=== PATIENT | female | born 1970 | race Caucasian/White ===

== ENCOUNTER 2020-10-09 11:32 | Outpatient (NON) | payer OTHER, SELFPAY ==
[2020-10-09 23:36] LABS: SARS-CoV-2 RNA PCR Negative
== END 2020-10-09 11:33 ==
PROVIDERS: PCP Family Medicine; Visit Provider Family Medicine
DX: R68.89 Other general symptoms and signs (principal); Z20.828 Contact with and (suspected) exposure to other viral communicable diseases
CPT/HCPCS: 87635; C9803; U0003

== ENCOUNTER → 2020-11-06 15:13 | Outpatient (CLI) | payer OTHER, SELFPAY ==
--- NOTE | ~2020-11-06 | MM_ITS ---
EXAMINATION: MM screening deion BI w jazz HISTORY: Screening TECHNIQUE: Craniocaudal and mediolateral oblique 3-D tomosynthesis images were obtained and synthetic 2-D images were generated. CAD analysis was submitted and interpreted. COMPARISON: Comparison to multiple prior studies sequentially, with oldest reviewed study dated 08/09. BREAST PARENCHYMAL COMPOSITION: The breasts are heterogeneously dense, which may obscure small masses . FINDINGS: There is no evidence of suspicious mass, calcification, or architectural distortion to sugg est malignancy in either breast. There has been no suspicious interval change. IMPRESSION: 1. No mammographic evidence of malignancy. 2. Recommend routine screening mammography in one year. BI-RADS Category 1: Negative Reviewed, dictated and finalized at location A. 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
== END ==
PROVIDERS: PCP Family Medicine; Visit Provider Family Medicine
DX: Z12.31 Encounter for screening mammogram for malignant neoplasm of breast (principal)
CPT/HCPCS: 77063; 77067

== ENCOUNTER 2020-11-14 11:19 | Outpatient (CLI) | payer OTHER, SELFPAY ==
--- NOTE | ~2020-11-14 | XR_ITS ---
XR chest 2V DATE: 11/14/2020 11:43 INDICATION: Cough for several months TECHNIQUE: PA and lateral views COMPARISON: 01/29/2019 2 view chest FINDINGS: Normal heart size. No hilar or mediastinal enlargement. No pulmonary infiltrate or consol idation, pulmonary vascular congestion or pleural effusion or pneumothorax. IMPRESSION: No active cardiopulmonary disease Reviewed, dictated and finalized at location B. 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
== END 2020-11-14 11:20 | disposition home or self-care (01) ==
LOC: ANHIMG 11:26
PROVIDERS: PCP Family Medicine; Visit Provider Physician Assistant
DX: R05 Cough (principal)
CPT/HCPCS: 71046

== ENCOUNTER → 2021-01-05 01:13 | Outpatient (CLI) | payer OTHER, SELFPAY ==
[2021-01-05 23:34] LABS: SARS-CoV-2 RNA PCR Negative
== END ==
PROVIDERS: PCP Family Medicine; Visit Provider Internal Medicine Gastroenterology
DX: Z01.818 Encounter for other preprocedural examination (principal); Z20.822 Contact with and (suspected) exposure to COVID-19
CPT/HCPCS: C9803; U0003; U0005

== ENCOUNTER 2021-01-08 02:37 | Day surgery (SDC) | payer OTHER, SELFPAY ==
[2020-12-21 13:40] VITALS: BMI 19.5
[2021-01-08 06:13] VITALS: BP 109/74; PULSE 84; RESP 18; TEMP 36.8; O2SAT 97; BMI 20.4
[2021-01-08] MEDS: LACTATED RINGERS 1,000 ML 150 ML IV CONT (06:28)
--- NOTE | 2021-01-08 07:13 | WPDANESEPPF ---
Anes - Initial Pre Proc Eval Procedure: Operation Date: 01/08/21 07:30 Proposed Procedures p Esophagogastroduodenoscopy - Cody Ny MD Date/Time: 01/08/21 07:13 Surgeon: Cody Ny MD Pre Op Diagnosis: GERD Patient Data Age: 50 Gender: F Height: 5 ft 6 in Weight: 57.4 kg Last Vital Signs Temp 98.3 F 01/08/21 06:13 Pulse 84 01/08/21 06:13 Resp 18 01/08/21 06:13 BP 109/74 01/08/21 06:13 Pulse Ox 97 01/08/21 06:13 Allergies Allergy/AdvReac Type Severity Reaction Status Date / Time erythromycin base Allergy Mild GI issues Verified 01/08/21 06:13 trimethoprim Allergy Mild Gastrointestinal Verified 01/08/21 06:13 Upset Home Medications Medication Instructions Recorded Confirmed Type cetirizine 10 mg tablet 10 mg PO DAILY 01/04/20 12/21/20 History cholecalciferol (vitamin D3) 100 4,000 unit PO DAILY cap 01/04/20 12/21/20 History mcg (4,000 unit) capsule Patient hx anesthesia problems: none Family hx anesthesia problems: none PMFSH Past Medical History Medical History (Updated 12/12/20 @ 15:00 by Cody Ny MD) Colon cancer screening Cough Onychomycosis Postmenopausal Recurrent rhinosinusitis Stress Family History Family History Mother Diabetes mellitus Patient's mother is in good health Acute myocardial infarction Sibling Diabetes mellitus Patient's sister is in good health Father Patient's father is in good health Social History Social History Smoking status: Never smoker Second hand tobacco smoke exposure: No Alcohol intake: never Substance use: never Substance use type: does not use Living arrangements: with family Gender identity (if verbalized by the patient): Female Spiritual care concerns: No Anes - Eval Final PreProcedure Day of Procedure 01/08/21 07:13 Patient weight: normal Heart: regular rate and rhythm Lungs: clear to auscultation Airway: Mallampati scale Last oral intake: >/= 8 hours ASA classification: I Emergent: no Anesthetic plan: proceed Anesthesia type and monitoring: general GIVS and standard monitoring Informed Consent: The patient's anesthetic plan and its attendant risks and benefits were discussed with the patient/family/POA. Questions were solicited and answers provided to the satisfaction of the patient/family/POA.
--- NOTE | 2021-01-08 07:31 | WPDHPUPDATE1 ---
History and Physical Update Update Date/Time: 01/08/21 07:31 History and Physical has been reviewed, including an updated exam of the patient. There are NO changes in the patient's condition. Risks, benefits, and alternatives have been discussed and questions answered. Patient agrees to proceed with procedure.
[2021-01-08 07:39] VITALS: BP 100/66; PULSE 80; RESP 21; O2SAT 94
[2021-01-08 07:49] VITALS: BP 98/64; PULSE 78; RESP 20; O2SAT 97
[2021-01-08 07:59] VITALS: BP 112/73; PULSE 72; RESP 19; O2SAT 98
== END 2021-01-08 08:16 | disposition home or self-care (01) ==
PROVIDERS: PCP Family Medicine; Visit Provider Internal Medicine Gastroenterology
PROC: 0DJ08ZZ Inspection of Upper Intestinal Tract, Via Natural or Artificial Opening Endoscopic (ICD-10-PCS; CPT 43235; principal; 2021-01-08 07:30)
DX: K21.9 Gastro-esophageal reflux disease without esophagitis (principal); R05 Cough; K29.50 Unspecified chronic gastritis without bleeding
CPT/HCPCS: 43239; 88305; J2001; J2704; J7120

== ENCOUNTER 2021-03-27 11:10 | Outpatient (CLI) | payer OTHER, SELFPAY ==
--- NOTE | ~2021-03-27 | XR_ITS ---
XR chest 2V DATE: 03/27/2021 11:33 INDICATION: Chest pain at left sixth through eighth ribs TECHNIQUE: PA and lateral views COMPARISON: 11/14/2020 2 view chest FINDINGS: Normal heart size. No hilar or mediastinal enlargement. No pulmonary infiltrate or consolid ation, pleural effusion or pulmonary vascular congestion or pneumothorax. No significant abnormality of the ribs is noted on this limited 2 view examination of the chest. Minimal dextroscoliosis of the thoracic spine. IMPRESSION: No active cardiopulmonary disease Reviewed, dictated and finalized at location B.
== END 2021-03-27 11:11 | disposition home or self-care (01) ==
LOC: ANHIMG 11:15
PROVIDERS: PCP Family Medicine; Visit Provider Physician Assistant
DX: R05 Cough (principal); R07.89 Other chest pain
CPT/HCPCS: 71046

== ENCOUNTER 2021-09-26 14:49 | Outpatient (CLI) | payer OTHER, SELFPAY ==
--- NOTE | ~2021-09-26 | US_ITS ---
EXAMINATION: US pelvic complete EXAM DATE: 09/26/2021 15:49 INDICATION: N83.8 - Other noninflammatory disorders of ovary, fallopi... Hypertrophy Of Right Ovary. TECHNIQUE: Pelvic transabdominal sonogram was performed. There are multiple grayscale and Doppler im ages available for interpretation. There is no prior study for comparison. FINDINGS: Uterus measures 5.1 x 2.6 x 2.3 cm, and is morphologically normal. Endometrial stripe quentin sures 4 mm, within normal limits. There is no free pelvic fluid. Right adnexa: The ovary measures 2.2 x 1.1 x 1.3 cm and is morphologically normal. Ovarian vascular f low confirmed. Left adnexa: The ovary measures 1.9 x 1.2 x 1.3 cm and is morphologically normal. Ovarian vascular fl ow confirmed. IMPRESSION: Unremarkable pelvic ultrasound exam. Reviewed, dictated and finalized at location B. 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
== END 2021-09-26 14:50 | disposition home or self-care (01) ==
PROVIDERS: PCP Family Medicine; Visit Provider Family Medicine
DX: N83.8 Other noninflammatory disorders of ovary, fallopian tube and broad ligament (principal)
CPT/HCPCS: 76856

== ENCOUNTER 2021-12-16 12:31 | Outpatient (CLI) | payer OTHER, SELFPAY ==
--- NOTE | ~2021-12-16 | XR_ITS ---
XR shoulder RT min 2V DATE: 12/16/2021 12:52 INDICATION: Ground-level fall. Right shoulder injury, pain TECHNIQUE: 4 views COMPARISON: None FINDINGS: No fracture or dislocation, periosteal reaction or bone destruction. No abnormal soft tissu e calcification. IMPRESSION: Negative Reviewed, dictated and finalized at location A. OR ADMINISTRATIVE ASSOCIATE IMPRESSION: Negative
== END 2021-12-16 12:32 | disposition home or self-care (01) ==
LOC: ANHIMG 12:34
PROVIDERS: PCP Family Medicine; Visit Provider Physician Assistant
DX: M25.511 Pain in right shoulder (principal); S49.91XA Unspecified injury of right shoulder and upper arm, initial encounter; X58.XXXA Exposure to other specified factors, initial encounter
CPT/HCPCS: 73030

== ENCOUNTER → 2022-01-06 14:30 | Outpatient (CLI) | payer OTHER, SELFPAY ==
--- NOTE | ~2022-01-06 | MR_ITS ---
EXAMINATION: MR shoulder RT wo con DATE: 01/06/2022 15:07 INDICATION: Strain of unspecified muscle, fascia, and tendon. Right shoulder pain. Right hand numbnes s. TECHNIQUE: Magnetic resonance imaging (MRI) of the right shoulder was performed without intravenous c ontrast. Sequences included axial PD-weighted FS FSE, coronal oblique PD-weighted FS FSE and T2-weigh lexy FS FSE, and sagittal oblique T2-weighted FS FSE and T1-weighted FSE. COMPARISON: Right shoulder radiographs 12/16/2021 FINDINGS: Coracoacromial arch: The acromion undersurface is curved in morphology (type II). There is moderate acromioclavicular join t osteoarthritis including inferiorly directed osteophytes. There is mild subacromial/subdeltoid burs itis. Rotator cuff: There is moderate tendinopathy of the conjoined portion of supraspinatus and infraspinatus tendons. T eres minor tendon is normal. Subscapularis tendon is normal. There is no asymmetric fatty atrophy of the rotator cuff muscle bellies. Biceps tendon and glenoid labrum: Biceps tendon is in bicipital groove. Intra-articular biceps tendon is normal. The glenoid labrum is normal. Fluid: There is no glenohumeral joint effusion. Bones/cartilage: Glenoid cartilage is normal. Humeral head cartilage is normal. IMPRESSION: 1. Moderate rotator cuff tendinopathy. No tear. 2. Moderate acromioclavicular joint osteoarthritis. 3. Mild subacromial/subdeltoid bursitis. Reviewed, dictated and finalized at location A. 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
== END ==
PROVIDERS: PCP Family Medicine; Visit Provider Nurse Practitioner Gerontology
DX: S46.911A Strain of unspecified muscle, fascia and tendon at shoulder and upper arm level, right arm, initial encounter (principal); X58.XXXA Exposure to other specified factors, initial encounter; M19.011 Primary osteoarthritis, right shoulder; M75.51 Bursitis of right shoulder
CPT/HCPCS: 73221

== ENCOUNTER → 2022-02-06 07:15 | Outpatient (CLI) | payer OTHER, SELFPAY ==
--- NOTE | ~2022-02-06 | MM_ITS ---
EXAMINATION: MM screening [facility] BI w jazz HISTORY: Screening mammogram TECHNIQUE: Craniocaudal and mediolateral oblique 3-D tomosynthesis images were obtained and synthetic 2-D images were generated. CAD analysis was submitted and interpreted. COMPARISON: 11/06/2020, 08/11/2018, 01/12/2017 BREAST PARENCHYMAL COMPOSITION: There are scattered areas of fibroglandular density. FINDINGS: There is no suspicious mass, calcification, or architectural distortion to suggest malignan cy in either breast. There has been no suspicious interval change. IMPRESSION: 1. No mammographic evidence of malignancy. 2. Recommend routine screening mammography in one year. BI-RADS Category 1: Negative Reviewed, dictated and finalized at location A.
== END ==
PROVIDERS: PCP Family Medicine; Visit Provider Family Medicine
DX: Z12.31 Encounter for screening mammogram for malignant neoplasm of breast (principal)
CPT/HCPCS: 77063; 77067

== ENCOUNTER → 2022-06-06 10:12 | Outpatient (CLI) | payer OTHER, SELFPAY ==
--- NOTE | ~2022-06-06 | CT_ITS ---
EXAMINATION: CT abdomen pelvis w con DATE: 06/06/2022 10:35 INDICATION: Left lower quadrant abdominal pain TECHNIQUE: Computed tomography (CT) of the abdomen and pelvis was performed with 100 CC Omnipaque 350 intravenous contrast. Automated exposure control and iterative reconstruction technique were employe d. Exam dose: 341.41 mGy-cm total exam DLP. COMPARISON: 09/26/2021 pelvic ultrasound examination FINDINGS: The lung bases are clear. Normal heart size. No pericardial or pleural effusion. The liver, gallbladder, bile ducts, pancreas and pancreatic duct appear normal. Normal splenic size. No adrenal mass lesion. No renal mass lesion or urinary tract obstruction or hydroureteronephrosis. No urinary tract calculus is apparent. Normal caliber of the abdominal aorta. No intraperitoneal or retroperitoneal or pelvic mass lesion or adenopathy or ascites is noted. Uterus and adnexal areas and urinary bladder are unremarkable. Normal appendix. There is a prominent amount of fecal material within the colon. No bowel obstruction is evident. No intraperitoneal free air is detected. There are some nondilated fluid containing smal l bowel segments with air-fluid levels which may be due to enteritis or mild adynamic ileus. Small fat-containing umbilical hernia. Severe degenerative disc disease at L5-S1. No suspicious osteolytic or osteoblastic lesions are noted . IMPRESSION: Nondilated fluid containing small bowel loops with occasional small bowel air-fluid leve ls, which may be due to enteritis or mild adynamic ileus Normal appendix Prominent amount of fecal material in the colon; no bowel obstruction or free air Reviewed, dictated and finalized at Location A. Reviewed, dictated and finalized at location B. IMPRESSION: Nondilated fluid containing small bowel loops with occasional smal l bowel air-fluid levels, which may be due to enteritis or mild adynamic ileus Normal appendix Prominent amount of fecal material in the colon; no bowel obstruction or free a ir
== END ==
PROVIDERS: Visit Provider Physician Assistant
DX: R10.32 Left lower quadrant pain (principal); J84.9 Interstitial pulmonary disease, unspecified; M47.817 Spondylosis without myelopathy or radiculopathy, lumbosacral region; K42.9 Umbilical hernia without obstruction or gangrene
CPT/HCPCS: 74177; Q9967